=== PATIENT | male | born 1935 | race Caucasian/White ===

== ENCOUNTER 2021-04-22 13:21 | Emergency (ER) | payer OTHER | END 2021-04-22 15:40 | disposition home or self-care (01) | LOC: FER 13:21 | DX: T84.021A Dislocation of internal left hip prosthesis, initial encounter (principal) | CPT/HCPCS: 73501; 96374; 96375; 99152; J1170; J2405; J2704 ==

== ENCOUNTER 2021-06-06 20:13 | Inpatient (IN) | payer OTHER ==
[~2021-06-06] VITALS: Ht 180.3 cm; Wt 92.7 kg
[2021-06-06 20:53] LABS: BASOPHIL 0.3 % (0-2); EOSINOPHIL 0.4 % (0-7); HCT 40.7 % (42.0-52.0); HGB 14.1 g/dl (13.2-18.0); LYMPHOCYTE 1.9 % (15-48); MCH 32.5 pg (25.0-31.0); MCHC 34.6 g/dL (32.0-36.0); MCV 93.8 fL (78.0-100.0); MONOCYTE 1.1 % (0-12); MPV 10.5 fL (6.0-9.5); NRBC 0; PLT 141 K/uL (150-400); RBC 4.34 M/uL (4.70-6.00); RDW 13.2 % (11.5-14.0)
[2021-06-06 20:56] LABS: INR 1.18 (0.9-1.2); PROTHROMBIN TIME 14.4 SECONDS (11.8-13.4); PTT 34.8 SECONDS (24.4-34.7)
[2021-06-06 21:07] LABS: ALBUMIN 3.9 g/dL (3.4-5.0); BILIRUBIN - TOTAL 0.5 mg/dL (0.2-1.0); BUN/CREAT RATIO (CALC) 14.9 RATIO; CREATININE 1.14 mg/dL (0.67-1.17); GLOBULIN (CALCULATION) 3.1 g/dL
[2021-06-06 21:11] LABS: D-DIMER 7.7 ug/mLFEU (0.00-0.41)
[2021-06-06 21:28] LABS: LACTIC ACID 1.8 mmol/L (0.4-1.9)
[2021-06-07] MEDS ORDERED: TENORMIN50 MG PO (01:36)
[2021-06-07] MEDS ORDERED: FLOMAX0.4 MG PO (01:37)
[2021-06-07] MEDS ORDERED: CHLORTHALIDONE25 MG PO (01:37)
[2021-06-07] MEDS ORDERED: PRAVACHOL20 MG PO (01:38)
[2021-06-07] MEDS ORDERED: PRILOSEC20 MG PO (01:38)
[2021-06-07] MEDS ORDERED: FLONASE ALLER15.8 ML (01:39)
[2021-06-07] MEDS ORDERED: ASPIRIN EC81 MG PO (01:40)
[2021-06-07] MEDS ORDERED: ALLERGY RELIEF10 MG PO (01:40)
[2021-06-07] MEDS ORDERED: STOOL SOFTENER100 MG PO (01:42)
[2021-06-07 06:31] LABS: BASOPHIL 0.6 % (0-2); EOSINOPHIL 5.8 % (0-7); HCT 35.7 % (42.0-52.0); HGB 12.3 g/dl (13.2-18.0); LYMPHOCYTE 9.6 % (15-48); MCH 32.3 pg (25.0-31.0); MCHC 34.5 g/dL (32.0-36.0); MCV 93.7 fL (78.0-100.0); MPV 10.4 fL (6.0-9.5); NEUTROPHIL 78.6 % (41-80); NRBC 0; PLT 128 K/uL (150-400); RBC 3.81 M/uL (4.70-6.00); RDW 13.3 % (11.5-14.0)
[2021-06-07 07:07] LABS: BUN/CREAT RATIO (CALC) 16.5 RATIO; CREATININE 1.09 mg/dL (0.67-1.17); POTASSIUM 3.6 mmol/L (3.5-5.1)
--- NOTE | 2021-06-07 15:38 | NUR ---
06/07/21 Mr. Trejo lives at home with his spouse. He was independent in the home and community prior to admission. No discharge planning needs are anticipated.
[2021-06-07 17:30] LABS: IRON % SATURATION 20.1 %SAT (20-50)
[2021-06-07 17:57] LABS: FOLIC ACID (SERUM) 18.1 ng/mL (8.6-58.9)
[2021-06-08 06:04] LABS: BASOPHIL 0.7 % (0-2); EOSINOPHIL 8.9 % (0-7); HCT 40.5 % (42.0-52.0); HGB 13.7 g/dl (13.2-18.0); LYMPHOCYTE 12.4 % (15-48); MCH 32.1 pg (25.0-31.0); MCHC 33.8 g/dL (32.0-36.0); MCV 94.8 fL (78.0-100.0); MONOCYTE 12.2 % (0-12); MPV 10.7 fL (6.0-9.5); NEUTROPHIL 65.4 % (41-80); NRBC 0; PLT 126 K/uL (150-400); RBC 4.27 M/uL (4.70-6.00); RDW 13.4 % (11.5-14.0); WBC 5.6 K/uL (4.0-10.5)
[2021-06-08 06:25] LABS: BUN/CREAT RATIO (CALC) 15.5 RATIO; CREATININE 1.29 mg/dL (0.67-1.17); POTASSIUM 4.5 mmol/L (3.5-5.1)
[2021-06-08] MEDS ORDERED: NITROQUIK SL0.4 MG SL (12:36)
== END 2021-06-08 14:10 | disposition home or self-care (01) | DRG 281 ==
LOC: FER 20:13 → FTCU 06-07
PROVIDERS: Emergency Medicine Emergency Medical Services; Nurse Practitioner; ADMIT Internal Medicine
DX: I21.A1 Myocardial infarction type 2 (principal); C83.35 Diffuse large B-cell lymphoma, lymph nodes of inguinal region and lower limb; T45.1X5A Adverse effect of antineoplastic and immunosuppressive drugs, initial encounter; I10 Essential (primary) hypertension; R00.1 Bradycardia, unspecified; C43.9 Malignant melanoma of skin, unspecified; Z66 Do not resuscitate; Z20.822 Contact with and (suspected) exposure to COVID-19; Z51.5 Encounter for palliative care; N40.1 Benign prostatic hyperplasia with lower urinary tract symptoms; R35.0 Frequency of micturition; K59.09 Other constipation; Z96.642 Presence of left artificial hip joint; Z87.01 Personal history of pneumonia (recurrent); Z98.890 Other specified postprocedural states; Z79.82 Long term (current) use of aspirin; Z79.899 Other long term (current) drug therapy
CPT/HCPCS: 36415; 71045; 71275; 80048; 80053; 80061; 82607; 82746; 83540; 83550; 83605; 83690; 84145; 84484; 85025; 85379; 85610; 85730; 93005; J1650; J2543; Q9967; U0002

== ENCOUNTER 2022-04-19 20:37 | Emergency (ER) | payer OTHER ==
[~2022-04-19 20:37] MED LIST: ALLERGY RELIEF10 MG PO; ASPIRIN EC81 MG PO; CHLORTHALIDONE25 MG PO; FLOMAX0.4 MG PO; FLONASE ALLER15.8 ML; NITROQUIK SL0.4 MG SL; PRAVACHOL20 MG PO; PRILOSEC20 MG PO; STOOL SOFTENER100 MG PO; TENORMIN50 MG PO
== END 2022-04-19 23:36 | disposition home or self-care (01) ==
LOC: FER 20:37
DX: T84.021A Dislocation of internal left hip prosthesis, initial encounter (principal); I10 Essential (primary) hypertension; Z96.642 Presence of left artificial hip joint; W01.0XXA Fall on same level from slipping, tripping and stumbling without subsequent striking against object, initial encounter; Y92.009 Unspecified place in unspecified non-institutional (private) residence as the place of occurrence of the external cause
CPT/HCPCS: 73501; J2250

== ENCOUNTER 2022-05-26 13:37 | Emergency (ER) | payer OTHER | END 2022-05-26 15:51 | disposition home or self-care (01) | LOC: FER 13:37 | DX: T84.021A Dislocation of internal left hip prosthesis, initial encounter (principal); I10 Essential (primary) hypertension; Z96.642 Presence of left artificial hip joint; Y83.1 Surgical operation with implant of artificial internal device as the cause of abnormal reaction of the patient, or of later complication, without mention of misadventure at the time of the procedure | CPT/HCPCS: 73501; 73502; J1170; J2704 ==